=== PATIENT | male | born 1960 | race Caucasian/White ===

== ENCOUNTER 2017-06-07 08:53 | Emergency (ER) | payer BC ==
[~2017-06-07] VITALS: Ht 185.4 cm; Wt 121.7 kg
[~2017-06-07 08:53] MED LIST: ACCUPRIL20 MG PO; Ativan PO; Ecotrin PO; Feosol PO; GABAPENTIN100 MG PO; Levothroid,Synthroid PO; Lipitor PO; MAGNESIUM250 MG PO; Macrobid PO; Mag-Ox PO; Norvasc PO; Plavix PO; Senokot S,Pericolace PO; THERMOTABS1 TABLET PO; Toprol XL PO; Vicodin,Norco 5/325 PO; ZYRTEC10 M3 PO; ZyrTEC PO
[2017-06-07 11:20] VITALS: BP 158/97
== END 2017-06-07 11:21 | disposition home or self-care (01) ==
LOC: EME 08:53
DX: R51 Headache (principal); E78.5 Hyperlipidemia, unspecified; I10 Essential (primary) hypertension; Z86.73 Personal history of transient ischemic attack (TIA), and cerebral infarction without residual deficits; F17.200 Nicotine dependence, unspecified, uncomplicated; Z96.652 Presence of left artificial knee joint; Z88.2 Allergy status to sulfonamides; Z88.0 Allergy status to penicillin
CPT/HCPCS: 70450; 99281; 99283